=== PATIENT | male | born 1960 | race Caucasian/White ===

== ENCOUNTER 2016-06-20 13:14 | Emergency (ER) | payer OTHER ==
[~2016-06-20] VITALS: Ht 177.8 cm; Wt 78.7 kg
[2016-06-20 13:33] VITALS: BP 131/91
[2016-06-20] MEDS ORDERED: ULTRAM50 MG PO (16:37)
[2016-06-20] MEDS ORDERED: NAPROSYN500 MG PO (16:37)
[2016-06-20] MEDS ORDERED: FLEXERIL10 MG PO (16:37)
== END 2016-06-20 16:56 | disposition home or self-care (01) ==
LOC: EME 13:14 → RME 13:14
DX: M54.5 Low back pain (principal); M62.838 Other muscle spasm; X50.9XXA Other and unspecified overexertion or strenuous movements or postures, initial encounter; F17.200 Nicotine dependence, unspecified, uncomplicated; Z71.6 Tobacco abuse counseling
CPT/HCPCS: 99281; 99283